=== PATIENT | male | born 1995 | race Caucasian/White ===

== ENCOUNTER 2017-06-05 00:09 | Emergency (ER) | payer OTHER ==
[~2017-06-05] VITALS: Ht 185.4 cm; Wt 76.0 kg
[2017-06-05 00:17] VITALS: BP 132/69; PULSE 64; RESP 16; TEMP 97.9; O2SAT 98
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
== END 2017-06-05 02:08 | disposition home or self-care (01) ==
LOC: NEPE 00:09
DX: Z04.1 Encounter for examination and observation following transport accident (principal); V87.7XXA Person injured in collision between other specified motor vehicles (traffic), initial encounter
CPT/HCPCS: 71020; 72170; 99284